=== PATIENT | female | born 1965 | race Two or more races ===

== ENCOUNTER 2016-11-15 13:40 | Emergency (ER) | payer MEDICAID ==
[~2016-11-15] VITALS: Ht 160 cm; Wt 45.4 kg
--- NOTE | 2016-11-15 13:46 | NUR ---
SELF PRESENTS FOR UNCOMPLIANCE OF DIABETES "I HAVE NOT TAKEN MY MEDICATIONS IN A YEAR". PLACED ON MONITOR. GOWNED PT . AWAITING MD ORDER
[2016-11-15] MEDS ORDERED: IV NS 0.9% 1,000 ML BAG IV ONE ×2 (14:00→15:30)
[2016-11-15 14:15] LABS: BASOPHILS % (AUTO) 0.4 % (0.0-2.0); EOSINOPHILS # (AUTO) 0.1 /CMM (0.0-0.7); EOSINOPHILS % (AUTO) 1.6 % (0.0-6.0); HEMATOCRIT 39 % (33-45); HEMOGLOBIN 12.3 g/dL (11.5-14.8); LYMPHOCYTES # (AUTO) 1.4 /CMM (0.8-4.8); LYMPHOCYTES % (AUTO) 29.3 % (20.0-44.0); MEAN CORPUSCULAR HEMOGLOBIN 28 PG (26.0-33.0); MEAN CORPUSCULAR HGB CONC 32 g/dl (31.0-36.0); MEAN CORPUSCULAR VOLUME 87 fL (82-100); MONOCYTES # (AUTO) 0.2 /CMM (0.1-1.30); MONOCYTES % (AUTO) 4.6 % (2.0-12.0); NEUTROPHILS % (AUTO) 64.1 % (43.0-81.0); PLATELET COUNT (AUTO) 247 /CMM (150-450); RDW COEFFICIENT OF VARIATION 12.6 (11.5-15.0); RED BLOOD CELL COUNT(AUTO) 4.42 MIL/uL (4.0-5.2); WHITE BLOOD COUNT (AUTO) 4.7 K/uL (4.3-11.0)
--- NOTE | 2016-11-15 14:15 | NUR ---
[facility] #20 IV ACCESS. BLOOD SAMPLE COLLECTED SENT TO LAB
--- NOTE | 2016-11-15 14:20 | NUR ---
GRAPHIC DESIGN ASSISTANT AT BEDSIDE
--- NOTE | 2016-11-15 14:24 | NUR ---
URINE SAMPLE COLLECTED SENT TO LAB
[2016-11-15 14:32] LABS: ALANINE AMINOTRANSFERASE 17 U/L (12-78); ALBUMIN 3.3 g/dL (3.4-5.0); ALKALINE PHOSPHATASE 193 U/L (46-116); ASPARTATE AMINOTRANSFERASE 8 U/L (15-37); BILIRUBIN,DIRECT 0.1 mg/dL (0.0-0.2); BILIRUBIN,TOTAL 0.2 mg/dL (0.2-1.0); CALCIUM, SERUM 8.7 mg/dL (8.5-10.1); CARBON DIOXIDE 27 mmol/L (21-32); CHLORIDE 93 mmol/L (98-107); CREATININE 1.1 mg/dL (0.6-1.3); POTASSIUM 4.3 mmol/L (3.5-5.1); SODIUM SERUM 128 mmol/L (136-145); TOTAL PROTEIN, SERUM 6.8 g/dL (6.4-8.2); UREA NITROGEN, BLOOD 11 mg/dL (7-18)
[2016-11-15 14:33] LABS: APPEARANCE,URINE Clear (CLEAR); BILIRUBIN,URINE Negative (NEGATIVE); BLOOD, URINE Trace-intact Ery/uL (NEGATIVE); COLOR,URINE Light yellow (YELLOW); KETONES,URINE Negative (NEGATIVE); LEUKOCYTE ESTERASE ,URINE Negative (NEGATIVE); NITRITE, URINE Negative (NEGATIVE); PH,URINE 6.5 (5.0-8.0); PROTEIN,URINE Negative (NEGATIVE); UGLUCOSE 500 MG/DL mg/dL (NEGATIVE); UROBILINOGEN,URINE 0.2 EU/dL (0.2)
[2016-11-15 14:36] LABS: TROPONIN I < 0.017 ng/mL (0.00-0.056)
[2016-11-15 14:39] LABS: BACTERIA,URINE Few /HPF (None Seen); RBC,URINE 0-3 /HPF (0-2); SQUAMOUS EPITHELIAL CELL,UR Few /HPF (None Seen)
[2016-11-15 14:42] LABS: GLUCOSE 842 mg/dL (74-106)
[2016-11-15 15:20] LABS: ABG BASE EXCESS -0.3 mmol/L; ABG PCO2 42.7 mmHg (35.0-45.0); ABG PH 7.383 (7.350-7.450); ABG PO2 37.3 mmHg (75.0-100.0); COHb 0.4 % (0.5-1.5); MetHb 0.6 % (0.0-1.5); O2Hb 68.3 % (94.0-97.0); SITE, ABG LEFT ARM; VENT MODE, BG ROOM AIR
--- NOTE | 2016-11-15 15:25 | NUR ---
CALLED NURSING SUP. FOR ICU BED
[2016-11-15] MEDS ORDERED: INSULIN REGULAR, HUMAN 100 UNIT in IV NS 0.9% 99 ML IV PRN ×2 (15:30)
--- NOTE | 2016-11-15 15:30 | NUR ---
[facility] PAGED, NURSERY ATTENDANT
[2016-11-15] MEDS ORDERED: INSULIN REGULAR, HUMAN 100 UNIT/ML 10 ML VIAL IV ONE (16:00)
[2016-11-15] MEDS ORDERED: INSULIN REGULAR, HUMAN 100 UNIT/ML 10 ML VIAL ONE (16:01)
[2016-11-15] MEDS ORDERED: ACETAMINOPHEN ES 500 MG TABLET PO ONE (16:30)
[2016-11-15] MEDS ORDERED: INSU3INS6 SQ (16:37)
[2016-11-15] MEDS ORDERED: METF10002 PO (16:37)
[2016-11-15] MEDS ORDERED: HYDR-552 PO (16:39)
[2016-11-15] MEDS ORDERED: INSU100V27 SQ (16:39)
[2016-11-15] MEDS ORDERED: GLYB5TAB7 PO (16:39)
[2016-11-15] MEDS ORDERED: ACETAMINOPHEN ES 500 MG TABLET ONE (16:55)
--- NOTE | 2016-11-15 17:39 | NUR ---
Patient discharged to home in stable condition. Written and verbal after care instructions given. Patient verbalizes understanding of instruction.
--- NOTE | 2016-11-15 17:39 | NUR ---
IV removed. Catheter intact and site benign. Pressure and 4x4 applied to site. No bleeding noted.
[2016-11-15 17:40] VITALS: BP 149/59
== END 2016-11-15 17:40 | disposition home or self-care (01) ==
LOC: ER 13:44
DX: R73.9 Hyperglycemia, unspecified (principal); F17.200 Nicotine dependence, unspecified, uncomplicated
CPT/HCPCS: 36415; 36600; 71010; 80048; 80076; 81001; 82010; 82962 ×2; 83935; 84484; 85025; 93005; 96360; 96361; 99285; 99406; A4606; J1815 ×2; J7030 ×6; Z7610; 81000-TC